=== PATIENT | female | born 1965 | race Caucasian/White ===

== ENCOUNTER 2018-05-14 17:39 | Emergency (ER) | payer OTHER ==
[~2018-05-14] VITALS: Ht 154.9 cm; Wt 64.4 kg
[~2018-05-14 17:39] MED LIST: KEFLEX500 M1 PO
--- NOTE | 2018-05-14 18:02 | ED UPPER/LOWER EXTREMITY COMPL ---
History of Present Illness General Chief Complaint: Hip Injury Stated Complaint: BIBA FOR L HIP PAIN Source: patient, family Exam Limitations: no limitations Vital Signs & Intake/Output Vital Signs & Intake/Output Vital Signs Date Time Temp Pulse Resp B/P B/P Pulse O2 O2 Flow FiO2 Mean Ox Delivery Rate 05/15 0512 98.0 88 18 122/74 97 Room Air 05/15 0100 98.2 73 18 145/76 97 Room Air 05/14 2310 97.7 88 16 156/85 99 Nasal 2.0L Cannula 05/14 2236 80 16 130/81 100 Nasal 2.0L Cannula 05/14 2119 98.3 88 18 134/80 98 Nasal 2.0L Cannula 05/14 2104 72 12 117/74 98 Nasal 2.0L Cannula 05/14 2100 70 12 114/68 98 Nasal 2.0L Cannula 05/14 2049 68 12 130/75 96 Nasal 2.0L Cannula 05/14 2036 98.0 80 16 132/68 96 Room Air 05/14 1827 76 16 132/80 97 Room Air 05/14 1809 Room Air 05/14 1749 98.1 64 18 163/82 96 Room Air ED Intake and Output 05/15 0000 05/14 1200 Intake Total 0 Output Total 0 Balance 0 Intake, Oral 0 Output, Urine 0 Patient 142 lb Weight Allergies Coded Allergies: No Known Allergies (04/24/18) Triage Note: 52 YEAR OLD FEMALE BIBA WITH LEFT HIP/LEFT LEG PAIN FROM HOME. 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 SHE STATES THE SAME THING HAPPENED APPROX 4 YEARS AGO AND "IT POPPED RIGHT BACK INTO PLACE". PATIENT IS AWAKE, ALERT, ORIENTED, AND COOPERATIVE. SKIN IS WARM AND DRY. PAIN LEVEL CURRENTLY 10/10. Triage Nurses Notes Reviewed? yes Onset: Abrupt Duration: minute(s): Timing: single episode today Severity: severe Severity Numbers: 10 Pain/Injury Location: Left: Hip. HPI: 52-year-old female who is status post left total hip replacement BIBA to emergency department complaining of severe left hip pain. 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 She did not fall down, her family helped her and called for an ambulance. Patient states this happened once before however that time her hip. Today's pain is more severe. Patient denies numbness or tingling. (Grace LUCERO,Ilda Abreu) Reconcile Medications Cholecalciferol (Vitamin D3) (Vitamin D) (Unknown Strength) TABLET (Unknown Dose) PO DAILY SUPPLEMENT (Reported) Dextroamphetamine/Amphetamine (Adderall 15 MG Tablet) 15 MG TABLET 1 TAB PO TID PRN ADD (Reported) Diazepam 5 MG TABLET 1 TAB PO BID PRN MUSCLE SPASMS (Reported) Duloxetine HCl 60 MG CAPSULE.DR 1 CAP PO BID DEPRESSION/NERVE PAIN (Reported) Gluc 2KCL/Chondr/Doyle Hy/Hy AC (Glucosamine & Chondroitin Cap) (Unknown Strength ) CAPSULE (Unknown Dose) PO DAILY SUPPLEMENT (Reported) Glucosam/Chond/Hyalu/Cf Borate (Move Free Joint Health Tablet) (Unknown Strength ) TABLET (Unknown Dose) PO DAILY SUPPLEMENT (Reported) Ibuprofen 600 MG TABLET 1 TAB PO TID PRN pain with food Krill Oil (Unknown Strength) CAPSULE (Unknown Dose) PO DAILY SUPPLEMENT ( Reported) Labetalol HCl 100 MG TABLET 1 TAB PO QAM BP (Reported) Labetalol HCl 100 MG TABLET 0.5 TAB PO QPM BP (Reported) Magnesium Oxide (Magnesium) (Unknown Strength) CAPSULE (Unknown Dose) PO DAILY SUPPLEMENT (Reported) Oxycodone HCl/Acetaminophen (Percocet 5-325 MG Tablet) 5 MG-325 MG TABLET 1 TAB PO 4XDP PRN PAIN TEN...[id number] Turmeric Root Extract (Turmeric) (Unknown Strength) CAPSULE (Unknown Dose) PO DAILY SUPPLEMENT (Reported) (Moisés CONNER,Alphonso Mcqueen) Past History Travel History Traveled to [place] past 21 day No Medical History Any Pertinent Medical History? see below for history Cardiovascular: hypertension Musculoskeletal: BACK SPASMS Psychiatric: depression, ADD Surgical History Surgical History: non-contributory Psychosocial History What is your primary language [place] Tobacco Use: Quit >30 days ago Family History Hx Contributory? No (Ilda Saleh) Review of Systems Review of Systems Constitutional: Reports: no symptoms. EENTM: Reports: no symptoms. Respiratory: Reports: no symptoms. Cardiovascular: Reports: no symptoms. Gastrointestinal/Abdominal: Reports: no symptoms. Genitourinary: Reports: no symptoms. Musculoskeletal: Reports: see HPI. Skin: Reports: no symptoms. Neurological/Psychological: Reports: no symptoms. Hematologic/Endocrine: Reports: no symptoms. Immunological: Reports: no symptoms. All Other Systems: Reviewed and Negative (Grace LUCERO,Ilda Abreu) Physical Exam Physical Exam General Appearance: well developed/nourished, alert, awake, mild distress Head: atraumatic, normal appearance Eyes: Bilateral: normal appearance. Ears, Nose, Throat: hearing grossly normal Neck: normal inspection, supple, full range of motion Cardiovascular/Respiratory: normal peripheral pulses, no respiratory distress Peripheral Pulses: 2+ dorsalis pedis (L) Back: normal inspection, normal range of motion Hip Left: tenderness with limited active or passive ROM d/t pain Hip Right: normal range of motion, normal inspection Foot Left: normal inspection, normal range of motion Foot Right: normal inspection, normal range of motion Skin: intact, normal color, warm/dry (Grace LUCERO,Ilda Abreu) Progress Differential Diagnosis: dislocation, fracture, sprain, tendon injury Plan of Care: Orders Procedure Date/time Status Durable Medical Equipment 05/15 107 Active Current Medications Sig/Amado Start time Last Medication Dose Stop Time Status Admin Ciprofloxacin 500 MG ONCE ONE 05/14 2000 CAN (Cipro) 05/14 2001 Patient's x-ray shows hip dislocation. The patient was signed out to Dr. Curiel pending conscious sedation and hip reduction. Distal pulses are intact. Diagnostic Imaging: Viewed by Me: Radiology Read. Discussed w/RAD: Radiology Read. Radiology Impression: PATIENT: JOSE M BRUSH PRESENT AGE: 52 PATIENT ACCOUNT NO: [id number] : 65 LOCATION: [facility] ORDERING PHYSICIAN: Ilda LUCERO SERVICE DATE: 05/14/183627 EXAM TYPE: RAD - XRY-AP PELVIS; XRY-HIP 2-3 VIEWS, LEFT EXAMINATIONS: PELVIS 1 VIEW AND LEFT HIP 2 VIEWS CLINICAL INFORMATION: Left hip pain. COMPARISON: 2017. TECHNIQUE: A supine view of the pelvis is provided. AP neutral and frog- leg lateral views of the left hip are provided. FINDINGS: There is posterior and superior dislocation to the left hip prosthesis. There are no acute fractures. There is mild medial joint space narrowing to the right hip and mild lateral acetabular osteophyte formation. IMPRESSION: Left hip prosthesis dislocation. DICTATED BY: Austin Del Rio MD DATE/TIME DICTATED:05/14/181921 COMMISSIONING AGENT:ROLY DATE/TIME TRANSCRIBED:05/14/181921 CONFIDENTIAL, DO NOT COPY WITHOUT APPROPRIATE AUTHORIZATION. <Electronically signed in Other Vendor System> SIGNED BY: Austin Del Rio MD 05/14/181931 Hand-Off Endorsed To: Alphonso Curiel MD Endorsed Time: 1937 Pending: other (hip reduction) (Grace LUCERO,Ilda Abreu) Departure Departure Disposition: HOME OR SELF CARE Condition: Stable Clinical Impression Primary Impression: Hip dislocation, left Referrals: Miller Ely MD (PCP/Family) Additional Instructions: Follow-up with orthopedic physician. Return with worsening symptoms or concerns. Please note that there might be incidental findings in your evaluation that are unrelated to the current emergency department visit. Please notify your primary care doctor about this emergency department visit in order to obtain and review all of the testing performed so that these incidental findings can be monitored as needed. If you had an x-ray performed, please understand that some fractures may not be seen on the initial set of x-rays. If your symptoms persist you might need a repeat set of x-rays to check for such a fracture. If you had a laceration evaluated, please understand that foreign bodies such as glass or wood may not be visible to the naked eye or on plain x-rays. If the wound becomes red, swollen, increasingly more painful or if there is any drainage from the wound, please have it reevaluated by a physician for the possibility of a retained foreign body. If you're unable to follow up as outlined in the discharge instructions please return to the emergency department. Thank you for choosing the [facility] Emergency Department for your care. It was a pleasure to serve you today. Departure Forms: Customer Survey General Discharge Information (Grace LUCERO,Ilda Abreu) Departure Prescriptions: Current Visit Scripts Ibuprofen 1 TAB PO TID PRN pain #30 TAB with food Oxycodone HCl/Acetaminophen (Percocet 5-325 MG Tablet) 1 TAB PO 4XDP PRN PAIN #10 TAB TEN...[id number] Comments 05/15/18, 0:06am.... unsuccessful attempts x 2 in the ED... discussed with dr. talavera who is at bedside for attempt. 05/15/18, 1:10AM...after one attempt, hip successfully reduced. pt feeling better s/p successful hip reduction 05/15/18, 5:15am... after a period of rest and recuperation, she is feeling well enough to go home. she was able to ambulate without problem. she was given crutches and will follow up with dr. carter (her orthopedist) this week. (Moisés CONNER,Alphonso Mcqueen) Procedures Joint Reduction Joint Reduction Site: hip (L) Conscious Sedation: conscious sedation, performed by me Reduction Attempts: 2 Pre-Procedure NV Exam: Yes Post-Procedure NV Exam: Yes Post Joint Reduction Film: joint not reduced Progress: discussed with dr. talavera who will evaluate patient. (Moisés CONNER,Alphonso Mcqueen)
[2018-05-14] MEDS ORDERED: LABETALOL HCL100 M1 PO ×2 (19:12)
[2018-05-14] MEDS ORDERED: ADDERALL 15 MG15 MG PO (19:13)
[2018-05-14] MEDS ORDERED: DIAZEPAM5 M1 PO (19:13)
[2018-05-14] MEDS ORDERED: DULOXETINE HCL60 MG PO (19:13)
[2018-05-14] MEDS ORDERED: MAGNESIUM400 M1 PO (19:14)
[2018-05-14] MEDS ORDERED: GLUCOSAMINE &1 EAC1 PO (19:14)
[2018-05-14] MEDS ORDERED: TURMERIC500 M2 PO (19:14)
[2018-05-14] MEDS ORDERED: MOVE FREE JOIN1 EACH PO (19:15)
[2018-05-14] MEDS ORDERED: VITAMIN D1000 UNIT PO (19:15)
[2018-05-14] MEDS ORDERED: KRILL OIL500 MG PO (19:15)
--- NOTE | 2018-05-14 19:32 | RADIOLOGY REPORT ---
EXAMINATIONS: PELVIS 1 VIEW AND LEFT HIP 2 VIEWS CLINICAL INFORMATION: Left hip pain. COMPARISON: 04/24/2018. TECHNIQUE: A supine view of the pelvis is provided. AP neutral and frog-leg lateral views of the left hip are provided. FINDINGS: There is posterior and superior dislocation to the left hip prosthesis. There are no acute fractures. There is mild medial joint space narrowing to the right hip and mild lateral acetabular osteophyte formation. IMPRESSION: Left hip prosthesis dislocation.
--- NOTE | 2018-05-14 21:46 | RADIOLOGY REPORT ---
EXAMINATION: XR HIP, LEFT CLINICAL INFORMATION: Post reduction. COMPARISON: Same day left hip radiographs. TECHNIQUE: An AP view of the left hip. FINDINGS: There is persistent superior and posterior dislocation to the left hip prosthesis. IMPRESSION: There is persistent superior and posterior dislocation to the left hip prosthesis.
--- NOTE | 2018-05-14 22:50 | RADIOLOGY REPORT ---
EXAMINATION: XR HIP, LEFT CLINICAL INFORMATION: Dislocation status post reduction attempt. COMPARISON: Multiple same day radiographs. TECHNIQUE: An AP view of the left hip. FINDINGS: There is persistent dislocation to the left hip prosthesis. IMPRESSION: Persistent dislocation to the left hip prosthesis.
--- NOTE | 2018-05-15 00:42 | RADIOLOGY REPORT ---
EXAMINATION: XR HIP, LEFT CLINICAL INFORMATION: Reduction of left hip dislocation COMPARISON: None TECHNIQUE: Single view of the left hip. FINDINGS: The previously seen dislocated left total hip replacement has been successfully reduced. There is no fracture. IMPRESSION: Successful reduction of left hip dislocation.
--- NOTE | 2018-05-15 00:48 | Cons- Orthopedic ---
General Information and HPI Consulting Request Date of Consult: 05/15/18 Requested By: emergency room Dr. Gates Reason for Consult: left hip dislocation Source of Information: patient History of Present Illness: patient bending to potato picker a dog dislocated her left hip prosthesis er attempted closed reduction called for assistance Allergies/Medications Allergies: Coded Allergies: No Known Allergies (04/24/18) Home Med List: Cholecalciferol (Vitamin D3) (Vitamin D) (Unknown Strength) TABLET (Unknown Dose) PO DAILY SUPPLEMENT (Reported) Dextroamphetamine/Amphetamine (Adderall 15 MG Tablet) 15 MG TABLET 1 TAB PO TID PRN ADD (Reported) Diazepam 5 MG TABLET 1 TAB PO BID PRN MUSCLE SPASMS (Reported) Duloxetine HCl 60 MG CAPSULE.DR 1 CAP PO BID DEPRESSION/NERVE PAIN (Reported) Gluc 2KCL/Chondr/Doyle Hy/Hy AC (Glucosamine & Chondroitin Cap) (Unknown Strength ) CAPSULE (Unknown Dose) PO DAILY SUPPLEMENT (Reported) Glucosam/Chond/Hyalu/Cf Borate (Move Free Joint Health Tablet) (Unknown Strength ) TABLET (Unknown Dose) PO DAILY SUPPLEMENT (Reported) Krill Oil (Unknown Strength) CAPSULE (Unknown Dose) PO DAILY SUPPLEMENT ( Reported) Labetalol HCl 100 MG TABLET 1 TAB PO QAM BP (Reported) Labetalol HCl 100 MG TABLET 0.5 TAB PO QPM BP (Reported) Magnesium Oxide (Magnesium) (Unknown Strength) CAPSULE (Unknown Dose) PO DAILY SUPPLEMENT (Reported) Turmeric Root Extract (Turmeric) (Unknown Strength) CAPSULE (Unknown Dose) PO DAILY SUPPLEMENT (Reported) Past History Medical History Cardiovascular: hypertension Musculoskeletal: BACK SPASMS Psychiatric: depression, ADD Surgical History Pertinent Surgical History: non-contributory Exam & Diagnostic Data Vital Signs and I&O Vital Signs Date Time Temp Pulse Resp B/P B/P Pulse O2 O2 Flow FiO2 Mean Ox Delivery Rate 05/14 2310 97.7 88 16 156/85 99 Nasal 2.0L Cannula 05/146 80 16 130/81 100 Nasal 2.0L Cannula 05/149 98.3 88 18 134/80 98 Nasal 2.0L Cannula 05/144 72 12 117/74 98 Nasal 2.0L Cannula 05/14 2100 70 12 114/68 98 Nasal 2.0L Cannula 05/149 68 12 130/75 96 Nasal 2.0L Cannula 05/14 2036 98.0 80 16 132/68 96 Room Air 05/14 1827 76 16 132/80 97 Room Air 05/14 1809 Room Air 05/14 1749 98.1 64 18 163/82 96 Room Air Intake & Output 05/15 0800 05/15 0000 05/14 1600 05/14 0800 05/14 0000 05/13 1600 Intake Total 0 Output Total 0 Balance 0 Intake, Oral 0 Output, Urine 0 Patient 142 lb Weight Physical Exam: patient with shortened internally rotated left leg had conscious sedation than closed reduction carried out in the er with success. Assessment/Plan Assessment/Plan left hip dislocation closed reduced in the er to followup with Dr. Norberto Bernard Consult Acknowledgment - Thank you for your consult request. Attending MD Review Statement Attending Statement Attending MD Statement: examined this patient
[2018-05-15] MEDS ORDERED: PERCOCET 5-3251 EACH PO (01:45)
[2018-05-15] MEDS ORDERED: IBUPROFEN600 M1 PO (01:45)
[2018-05-15 05:12] VITALS: BP 122/74
== END 2018-05-15 05:23 ==
LOC: ERH 17:39
DX: T84.021A Dislocation of internal left hip prosthesis, initial encounter (principal); I10 Essential (primary) hypertension; Z87.891 Personal history of nicotine dependence; X58.XXXA Exposure to other specified factors, initial encounter; Y93.89 Activity, other specified
CPT/HCPCS: 72170; 73501; 73502-LT; 96374; 96375; 96376; J2405; J2765